=== PATIENT | male | born 1945 | race Caucasian/White ===

== ENCOUNTER 2018-09-12 17:45 | Inpatient (IN) | payer MEDICARE ==
[~2018-09-12] VITALS: Ht 172.7 cm; Wt 69.4 kg
--- NOTE | ~2018-09-12 | DS ---
PATIENT:TIMOTEO PRABHAKAR :47 MEDICAL RECORD: [id number] DISCHARGE SUMMARY ADMISSION DATE: 09/12/18 DISCHARGE DATE: 09/27/18 IDENTIFYING DATA: The patient is 73 years old and he was admitted to the hospital on a voluntary basis because of aggression. The patient lives in a local longterm and apparently has been combative with the staff. He has been refusing medications and personal care. He says the staff there does not like him and that they are attacking him. He has no barbosa and cannot say who was attacking him or when this happened. It is just a generalized paranoid belief. He tells me that the reason they are attacking him is because they want to steal his body organs. He goes on to make a number of delusional noncoherent statements. He denies that he would seek to harm anyone, even though he believes they are trying to attack him to take his body organs and he says there is no single person involved. This is just a generalized conspiracy among everyone at the longterm. He says he does not feel safe there and he is not going to harm himself. He denies hallucinations, although he is clearly delusional. HOSPITAL COURSE: The patient was admitted to the hospital and fully evaluated from both a medical, psychological, and social standpoint. The patient has a known history of schizophrenia and indeed the bizarre paranoid delusions he is displaying are consistent with that condition. He is fairly limited in his insight. He also has clear evidence of cognitive decline that would be consistent with a dementing process. He was treated with both antipsychotic and mood stabilizing and memory enhancing medications and through the course of the hospitalization and had no disruptive or aggressive behaviors and became less paranoid and delusional about the people at the longterm. He was subsequently transitioned back to the longterm but continued to have a number of delusions but not paranoid or persecutory delusions about someone trying to harm him. DISCHARGE DIAGNOSES: AXIS I: Schizophrenia - chronic undifferentiated, senile dementia of the Alzheimer's type. AXIS II: None. AXIS III: Chronic obstructive pulmonary disease, diabetes, peripheral neuropathy. AXIS IV: Moderate stressors. AXIS V: Global Assessment Of Functioning is 40. PLAN: At the time of discharge, the patient was in good behavioral control and had no active thoughts of harming himself or others. He was tolerating his medications well. Followup is to be with his primary care longterm physician. TRANSINT:[id number] Voice Confirmation ID: [id number] DOCUMENT ID: [id number] DISCHARGE SUMMARY REPORT [id number] TIMOTEO PRABHAKAR PETER MD at 0946 CC: [id number] DICTATION DATE: 10/01/18 1022 FUNERAL PLANNING COUNSELOR: 10/01/18 2240 DIS IN 09/27/18 [place] [address] [place] [address]
--- NOTE | ~2018-09-12 | PN ---
PATIENT:TIMOTEO PRABHAKAR MEDICAL RECORD: [id number] LOCATION:GIDEON Jensen112 ADMISSION DATE: 09/12/18 PROGRESS NOTE DATE OF SERVICE: 09/27/2018 SUBJECTIVE: The patient's case was discussed with staff. He has no new complaint. OBJECTIVE: The patient denies intent to harm himself or others. He generally tolerates his medicines well. He makes several delusional statements, but is not representing any acute evidence of direct dangerousness. ASSESSMENT: No change in diagnoses. PLAN: Current medicines have been reviewed. The patient will be transitioned out of the hospital today. He is going to go to the [facility] in [place]. His long-term prognosis is guarded. TRANSINT:[id number] Voice Confirmation ID: [id number] DOCUMENT ID: [id number] SHAKIRA NEWMAN MD at 0954 CC: [id number] DICTATION DATE: 09/27/18 1302 MONOTYPE SETTER: 09/27/18 1306 DIS IN 09/27/18 [place] [address] [place] [address]
--- NOTE | ~2018-09-12 | PN ---
PATIENT:TIMOTEO PRABHAKAR MEDICAL RECORD: [id number] LOCATION:GIDEON Jensen112 ADMISSION DATE: 09/12/18 PROGRESS NOTE DATE OF SERVICE: 09/14/2018 SUBJECTIVE: The patient's case was discussed with staff. He has no new complaint. OBJECTIVE: The patient is in good behavioral control with limited insight about his condition. He has been pleasant, but quite bizarre. He ate very well yesterday and is taking his medications as prescribed. He clearly has a history of schizophrenia and I very much understand and agree with that diagnosis. I am going to discontinue his Risperdal and we will change him to some oral Haldol. I am going to do this based on his preference for that particular medication and him telling me that it worked well for him in the past. I also know that there is a history of noncompliance and so I am going to consider perhaps treating him with a long-acting Haldol injection before he leaves. TRANSINT:[id number] Voice Confirmation ID: [id number] DOCUMENT ID: [id number] SHAKIRA NEWMAN MD at 0926 CC: [id number] DICTATION DATE: 09/14/18 1035 ADDRESSER: 09/14/18 1146 ADM IN [place] [address] [id number] [place] [address]
--- NOTE | ~2018-09-12 | PN ---
PATIENT:TIMOTEO PRABHAKAR MEDICAL RECORD: [id number] LOCATION:IVYZeyad Jensen112 ADMISSION DATE: 09/12/18 PROGRESS NOTE DATE OF SERVICE: 09/22/2018 SUBJECTIVE: The patient's case was discussed with staff. He has no new complaint. OBJECTIVE: The patient is in good behavioral control with limited insight about his condition. He has not been aggressive today. ASSESSMENT: No change in diagnoses. PLAN: Current medicines have been reviewed. I think the 5 mg of Haldol at bedtime is going to be sufficient, although it has not had an opportunity to become fully effective. His long-term prognosis is guarded. TRANSINT:[id number] Voice Confirmation ID: [id number] DOCUMENT ID: [id number] SHAKIRA NEWMAN MD at 1241 CC: [id number] DICTATION DATE: 09/22/18 1427 LENS GRINDER: 09/22/18 1454 ADM IN [place] [id number] [place] [id number]
--- NOTE | ~2018-09-12 | PN ---
PATIENT:TIMOTEO PRABHAKAR MEDICAL RECORD: [id number] LOCATION:GIDEON Miranda ADMISSION DATE: 09/12/18 PROGRESS NOTE DATE OF SERVICE: 09/17/2018 SUBJECTIVE: The patient's case was discussed with staff. He has no new complaint. OBJECTIVE: The patient denies intent to harm himself or others. He has loose associations and is concrete to abstraction. He has limited short-term memory. ASSESSMENT: No change in diagnoses. PLAN: No psychotic symptoms are observed. The patient is tolerating the increased dose of Haldol well. His long-term prognosis is guarded. TRANSINT:[id number] Voice Confirmation ID: [id number] DOCUMENT ID: [id number] SHAKIRA NEWMAN MD at 1223 CC: [id number] DICTATION DATE: 09/17/18 1443 PERFORATING MACHINE OPERATOR: 09/17/18 1540 ADM IN [facility] [address] [place] [address]
--- NOTE | ~2018-09-12 | PN ---
PATIENT:TIMOTEO PRABHAKAR MEDICAL RECORD: [id number] LOCATION:GIDEON Jensen112 ADMISSION DATE: 09/12/18 PROGRESS NOTE DATE OF SERVICE: 09/25/2018 SUBJECTIVE: The patient's case was discussed with staff. He has no new complaint. OBJECTIVE: The patient denies intent to harm himself or others. He does tolerate his medicines well. Eye contact is fair. ASSESSMENT: No change in diagnoses. PLAN: Brief supportive and educational interventions were made. The patient wants to go live with his [place] to [facility], but I do not see how that is possible given the fact that we cannot contact the brother and he is in the custody of adult protective services and they have ordered no contact with the family. Apparently, there were issues related to supervision or exploitation in the past that has precipitated this. I see no alternative, but for him to return to [facility]. TRANSINT:[id number] Voice Confirmation ID: [id number] DOCUMENT ID: [id number] SHAKIRA NEWMAN MD at 1641 CC: [id number] DICTATION DATE: 09/25/18 0941 POTTERY DECORATOR: 09/25/18 [address] [facility] [address] [place] [address]
--- NOTE | ~2018-09-12 | PN ---
PATIENT:TIMOTEO PRABHAKAR MEDICAL RECORD: [id number] LOCATION:MargotSORAYAZeyad Jensen112 ADMISSION DATE: 09/12/18 PROGRESS NOTE DATE OF SERVICE: 09/20/2018 SUBJECTIVE: The patient's case was discussed with staff. He has no new complaint. OBJECTIVE: The patient is sleeping and eating reasonably well. His Haldol has been increased to 5 mg a day and with that increase I think there is any improvement in his underlying level of psychotic symptoms. He has very limited insight about his situation. ASSESSMENT: No change in diagnoses. PLAN: Supportive and educational interventions were made. Long-term prognosis is guarded. TRANSINT:[id number] Voice Confirmation ID: [id number] DOCUMENT ID: [id number] SHAKIRA NEWMAN MD at 1212 CC: [id number] DICTATION DATE: 09/20/18 1040 FUR SCRAPER: 09/20/18 1101 ADM IN [facility] [address] [place] [address]
--- NOTE | ~2018-09-12 | PN ---
PATIENT:TIMOTEO PRABHAKAR MEDICAL RECORD: [id number] LOCATION:MargotPitaJM Jensen112 ADMISSION DATE: 09/12/18 PROGRESS NOTE DATE OF SERVICE: 09/21/2018 SUBJECTIVE: The patient's case was discussed with staff. He has no new complaint. OBJECTIVE: The patient is tolerating his medicines well. He makes a number of delusional statements, but he has not been aggressive. ASSESSMENT: No change in diagnoses. PLAN: Current medicines and therapies have been reviewed and will be maintained. His long-term prognosis is guarded. TRANSINT:[id number] Voice Confirmation ID: [id number] DOCUMENT ID: [id number] SHAKIRA NEWMAN MD at 1421 CC: [id number] DICTATION DATE: 09/21/18 1230 CHEMISTRY LABORATORY TECHNICIAN: 09/21/18 1235 ADM IN [facility] [address] [place] [address]
--- NOTE | ~2018-09-12 | PN ---
PATIENT:TIMOTEO PRABHAKAR MEDICAL RECORD: [id number] LOCATION:GIDEON FrostPita112 ADMISSION DATE: 09/12/18 PROGRESS NOTE DATE OF SERVICE: 09/23/2018 SUBJECTIVE: The patient's case was discussed with staff. He has no new complaint. OBJECTIVE: The patient denies intent to harm himself or others. He does tolerate his medicines well. He has a couple of delusional statements that he makes but, on the whole, he is not showing evidence of gross disorganization. ASSESSMENT: No change in diagnoses. PLAN: Current medicines have been reviewed and will be maintained. Long-term prognosis is guarded. TRANSINT:[id number] Voice Confirmation ID: [id number] DOCUMENT ID: [id number] SHAKIRA NEWMAN MD at 0930 CC: [id number] DICTATION DATE: 09/23/18 1244 SHADING PAINTER: 09/23/18 1428 ADM IN [facility] [address] [place] [address]
--- NOTE | ~2018-09-12 | PN ---
PATIENT:TIMOTEO PRABHAKAR MEDICAL RECORD: [id number] LOCATION:GIDEON Camila112 ADMISSION DATE: 09/12/18 PROGRESS NOTE DATE OF SERVICE: 09/15/2018 SUBJECTIVE: The patient's case was discussed with staff. He has no new complaint. OBJECTIVE: The patient denies intent to harm himself or others. He generally tolerates his medicines well. ASSESSMENT: No change in diagnoses. PLAN: Current medicines have been reviewed. The patient has not been significantly agitated, although he does require an extensive amount of redirection. He has tolerated his initial doses of Haldol well, but I will monitor him to make sure there is no excessive sedation. TRANSINT:[id number] Voice Confirmation ID: [id number] DOCUMENT ID: [id number] SHAKIRA NEWMAN MD at 1054 CC: [id number] DICTATION DATE: 09/15/18 0937 TEAROOM HOSTESS: 09/15/18 1102 ADM IN [place] [id number] [place] [id number]
--- NOTE | ~2018-09-12 | PN ---
PATIENT:TIMOTEO PRABHAKAR MEDICAL RECORD: [id number] LOCATION:GIDEON Jensen112 ADMISSION DATE: 09/12/18 PROGRESS NOTE DATE OF SERVICE: 09/18/2018 SUBJECTIVE: The patient's case was discussed with staff. He has no new complaint. OBJECTIVE: The patient is in good behavioral control with limited insight about his condition. He tolerates his medicines well. ASSESSMENT: No change in diagnoses. PLAN: Supportive and educational interventions were made. The patient is in good behavioral control. TRANSINT:[id number] Voice Confirmation ID: [id number] DOCUMENT ID: [id number] SHAKIRA NEWMAN MD at 0922 CC: [id number] DICTATION DATE: 09/18/18 1238 CUTLERY GRINDER: 09/18/18 1244 ADM IN [place] [id number] [place] [address]
--- NOTE | ~2018-09-12 | PN ---
PATIENT:TIMOTEO PRABHAKAR MEDICAL RECORD: [id number] LOCATION:GIDEON Jensen112 ADMISSION DATE: 09/12/18 PROGRESS NOTE DATE OF SERVICE: 09/19/2018 SUBJECTIVE: The patient's case was discussed with staff. He has no new complaint. OBJECTIVE: The patient is in good behavioral control. He did sleep better last night with the addition of the trazodone. He has made a number of delusional statements, but has not been behaviorally aggressive or disruptive. ASSESSMENT: No change in diagnoses. PLAN: Current medicines have been reviewed and will be maintained. His long-term prognosis is guarded. Brief supportive and educational interventions were made. TRANSINT:[id number] Voice Confirmation ID: [id number] DOCUMENT ID: [id number] SHAKIRA NEWMAN MD at 1026 CC: [id number] DICTATION DATE: 09/19/18 1117 VASCULAR MANAGER: 09/19/18 1237 ADM IN [place] [address] [place] [address]
--- NOTE | ~2018-09-12 | PN ---
PATIENT:TIMOTEO PRABHAKAR MEDICAL RECORD: [id number] LOCATION:GIDEON Jensen112 ADMISSION DATE: 09/12/18 PROGRESS NOTE DATE OF SERVICE: 09/26/2018 SUBJECTIVE: The patient's case was discussed with staff. He has no new complaint. OBJECTIVE: The patient is in good behavioral control with limited insight about his condition. He does tolerate his medicines well. He is still delusional, but not representing a direct risk. He does require supervision. He is under [facility] custody and is going to be returned to the [facility] tomorrow. If he does have a brother, we have no contact information and the patient was living on the street, not with his brother prior to going to the [facility]. APS may want to look into another housing arrangement later, but at this point, he must go to [facility] and I have informed him of that. TRANSINT:[id number] Voice Confirmation ID: [id number] DOCUMENT ID: [id number] SHAKIRA NEWMAN MD at 1254 CC: [id number] DICTATION DATE: 09/26/18 1748 WIRE FRAME LAMPSHADE MAKER: 09/26/18 1859 ADM IN [facility] [address] [place] [address]
--- NOTE | ~2018-09-12 | PSY ---
PATIENT NAME:TIMOTEO PRABHAKAR MEDICAL RECORD: [id number] : 47 LOCATION:GIDEON Miller ADMISSION DATE: 09/12/18 ACCOUNT: [id number] PSYCHIATRIC EVALUATION DATE OF EVALUATION: 09/13/18 IDENTIFYING DATA: The patient is 73 years old and he is admitted to the hospital on a voluntary basis. CHIEF COMPLAINT: Aggression. HISTORY OF PRESENT ILLNESS: The patient lives in a local shelter. He apparently has been combative with the staff, refusing medications and refusing personal care. He says that the staff there does not like him and that they are attacking him. He has no barbosa and he cannot say who or when this happened, but just a general paranoid belief that they are mistreating him. When asked about why they are doing this, he says that they are wanting to steal his organs. He goes on and makes a number of other delusional noncoherent statements. He denies that he would seek to harm anyone else, saying that there is no single person that is involved in this, it is conspiracy involving everyone at the shelter. He says he does feel safe here. He denies that he would seek to harm himself. He denies that he is having auditory or visual hallucinations. PAST MEDICAL HISTORY: Significant for diabetes and an associated neuropathy. PAST PSYCHIATRIC HISTORY: Significant for a longstanding diagnosis of schizophrenia and a recent diagnosis of Alzheimer's dementia. FAMILY HISTORY: Significant for hypertension, but psychiatric issues are denied. ALLERGIES: No known drug allergies. CURRENT MEDICATIONS: Include Atrovent, calcium, Flonase, Glucophage, Risperdal, Zocor, and trazodone. SOCIAL HISTORY: The patient says he has never used drugs or alcohol. He says he was and his . He also tells me he has 2 children. He lives in a local shelter. MENTAL STATUS EXAMINATION: The patient is awake, alert and oriented to person and place, but not to time or situation. His mood is anxious. His affect is constricted. Thought processes are circumstantial. Memory, concentration, and abstraction abilities are moderately impaired and he denies any active intent to harm himself or others as well as overt psychotic symptoms. ASSETS: Supportive family members. LIABILITIES: Limited insight. DIAGNOSTIC IMPRESSION: AXIS I: Schizophrenia, chronic, undifferentiated. Senile dementia of the Alzheimer's type. AXIS II: None. AXIS III: Chronic obstructive pulmonary disease, diabetes, neuropathy. AXIS IV: Moderate stressors. AXIS V: Global assessment of functioning is 35. PLAN: At this time, the patient is admitted to the hospital for a comprehensive medical, psychological, and social evaluation. He will be treated with both mood stabilizing and memory enhancing medications. His long-term prognosis is guarded. TRANSINT:[id number] Voice Confirmation ID: [id number] DOCUMENT ID: [id number] SHAKIRA NEWMAN MD at 1024 CC: [id number] DICTATION DATE: 09/13/18 1014 DSP ENGINEER: 09/13/18 1125 [facility] IN [place] [id number] [place] [address]
--- NOTE | ~2018-09-12 | PN ---
PATIENT:TIMOTEO PRABHAKAR MEDICAL RECORD: [id number] LOCATION:GIDEON Camila112 ADMISSION DATE: 09/12/18 PROGRESS NOTE DATE OF SERVICE: 09/16/2018 SUBJECTIVE: The patient's case was discussed with staff. He has no new complaint. OBJECTIVE: The patient has been seen clearly attending to voices not present. When asked about this, he is evasive and basically is denying it. He has pretty limited insight about his situation. He says he is not having any thoughts of harming himself. ASSESSMENT: No change in diagnoses. PLAN: Current medications have been reviewed and will be maintained. I am going to increase and consolidate the dose of Haldol to 5 mg at bedtime. TRANSINT:[id number] Voice Confirmation ID: [id number] DOCUMENT ID: [id number] SHAKIRA NEWMAN MD at 1417 CC: [id number] DICTATION DATE: 09/16/18 1106 LIME VAT TENDER: 09/16/18 1230 ADM IN [place] [address] [place] [address]
--- NOTE | ~2018-09-12 | PN ---
PATIENT:TIMOTEO PRABHAKAR MEDICAL RECORD: [id number] LOCATION:GIDEON Jensen112 ADMISSION DATE: 09/12/18 PROGRESS NOTE DATE OF SERVICE: 09/24/2018 SUBJECTIVE: The patient's case was discussed with staff. He has no new complaint. OBJECTIVE: The patient is in good behavioral control with limited insight about his condition. He generally tolerates his medicines well. ASSESSMENT: No change in diagnoses. PLAN: Supportive and educational interventions were made. Long-term prognosis is guarded. The patient will be discharged from the hospital soon. He continues to be delusional, but is not currently representing a direct risk to himself or others. TRANSINT:[id number] Voice Confirmation ID: [id number] DOCUMENT ID: [id number] SHAKIRA NEWMAN MD at 0924 CC: [id number] DICTATION DATE: 09/24/18 1022 TOBACCO PRIZER: 09/24/18 1117 ADM IN [place] [address] [place] [address]
[2018-09-12 19:00] VITALS: BP 147/79
[2018-09-12 19:23] LABS: APPEARANCE CLEAR (CLEAR); COLOR YELLOW (YELLOW)
[2018-09-12 19:24] LABS: BILIRUBIN NEGATIVE (NEGATIVE); GLUCOSE 50 mg/dL (NEGATIVE); KETONE NEGATIVE (NEGATIVE); NITRITE NEGATIVE (NEGATIVE); PROTEIN 1+ mg/dL (NEGATIVE); SPECIFIC GRAVITY 1.015 (1.005-1.020); UROBILINOGEN NORMAL (NORMAL)
[2018-09-12 19:28] LABS: BACTERIA FEW /hpf (NONE SEEN); EPITHELIAL CELLS 0-5 /hpf (0-5); RED CELLS - URINE 0-5 /hpf (0-5); WHITE CELLS - URINE 0-5 /hpf (0-5)
[2018-09-12] MEDS ORDERED: ATROVENT HFA12.9 GM INH (20:39)
[2018-09-12] MEDS ORDERED: CALCIUM 600 +1 EAC3 PO (20:44)
[2018-09-12] MEDS ORDERED: FLUTICASONE PRO16 GM NASAL (20:45)
[2018-09-12] MEDS ORDERED: GLUCOPHAGE500 MG PO (20:46)
[2018-09-12] MEDS ORDERED: ZOCOR40 MG PO (20:47)
[2018-09-12] MEDS ORDERED: RISPERDAL3 MG PO (20:47)
[2018-09-12] MEDS ORDERED: TRAZODONE HCL100 MG PO (20:48)
[2018-09-13 00:51] VITALS: BP 147/79; BMI 23.3
[2018-09-13 06:22] LABS: BASOPHILS 0.4 % (0-2); EOSINOPHILS 2.4 % (0-7); HEMATOCRIT 39.3 % (42.0-54.0); HEMOGLOBIN 13.4 g/dL (13.5-17.5); IMMATURE GRANULOCYTES 0.7 % (0-5); LYMPHOCYTES 33.5 % (15-50); MCH 30.9 pg (26.0-34.0); MCHC 34.1 g/dL (31.0-37.0); MCV 90.6 fL (80.0-100.0); MONOCYTES 8.8 % (2-11); NEUTROPHILS 54.2 % (40-80); PLATELET COUNT 183 10x3/uL (130-400); RBC 4.34 10x6/uL (4.20-6.10); RDW 13.6 % (11.5-14.5); WBC 7.6 10x3/uL (4.8-10.8)
[2018-09-13 06:48] LABS: ALBUMIN 3.5 g/dL (3.4-5.0); ALKALINE PHOSPHATASE 100 U/L (46-116); ALT (SGPT) 47 U/L (10-68); BILIRUBIN - TOTAL 0.42 mg/dL (0.2-1.3); CALC OSMOLALITY 276 mosm/kg (275-300); CALCIUM 8.9 mg/dL (8.5-10.1); CARBON DIOXIDE 26.4 mmol/L (21.0-32.0); CHLORIDE - SERUM 102 mmol/L (98-107); CHOL - HDL RATIO 2.6 ratio (2.3-4.9); CHOLESTEROL, TOTAL 214 mg/dL (0-200); CREATININE - SERUM 0.9 mg/dL (0.6-1.3); GLUCOSE 99 mg/dL (74-106); HDL CHOLESTEROL 83 mg/dL (32-96); LDL CHOLESTEROL 120 mg/dL (0-100); LDL-HDL RATIO 1.4 ratio (1.5-3.5); SODIUM 138 mmol/L (136-145); THYROID STIMULATING HORMONE 1.85 uIU/mL (0.36-3.74); TRIGLYCERIDE 58 mg/dL (30-200); UREA NITROGEN 14 mg/dL (7-18); eGFR NON AFRICAN AMERICAN 88 mL/min (90-120)
[2018-09-13 19:25] VITALS: BP 148/92
[2018-09-13 20:06] VITALS: BP 128/67
[2018-09-14 09:18] LABS: FOLATE (FOLIC ACID) - SERUM 12.7 ng/mL (>3.0)
[2018-09-14 10:05] VITALS: BP 105/64
[2018-09-14 20:10] VITALS: BP 111/60
[2018-09-15 09:15] VITALS: BP 94/54
[2018-09-15 19:32] VITALS: BP 100/57
[2018-09-16 08:00] VITALS: BP 130/77
[2018-09-16 19:54] VITALS: BP 113/58
[2018-09-17 07:00] VITALS: BP 113/89
[2018-09-17 13:30] VITALS: Ht 172.7 cm; Wt 69.4 kg
[2018-09-17 20:21] VITALS: BP 118/71
[2018-09-18 07:00] VITALS: BP 115/60
[2018-09-18 20:15] VITALS: BP 105/60
[2018-09-19 09:47] VITALS: BP 120/65
[2018-09-19 20:34] VITALS: BP 124/63
[2018-09-20 11:22] VITALS: BP 109/89
[2018-09-20 11:34] VITALS: BP 109/89
[2018-09-20 20:32] VITALS: BP 118/61
[2018-09-21 08:59] VITALS: BP 114/64
[2018-09-21 20:02] VITALS: BP 126/54
[2018-09-22 10:47] VITALS: BP 132/72
[2018-09-22 19:32] VITALS: BP 127/66
[2018-09-23 08:05] VITALS: BP 102/87
[2018-09-23 20:00] VITALS: BP 118/61
[2018-09-24 10:03] VITALS: BP 111/65
[2018-09-24 20:39] VITALS: BP 136/73
[2018-09-25 09:26] VITALS: BP 10/66
[2018-09-25 19:31] VITALS: BP 104/60
[2018-09-26 09:18] VITALS: BP 141/74
[2018-09-26] MEDS ORDERED: HALDOL5 MG PO (16:58)
[2018-09-26] MEDS ORDERED: FEXOFENADINE H180 MG PO (16:58)
[2018-09-26] MEDS ORDERED: VITAMIN D5000 UNIT PO (16:59)
[2018-09-26] MEDS ORDERED: VITAMIN B-121000 MCG PO (16:59)
[2018-09-26] MEDS ORDERED: DESERYL50 M2 PO (16:59)
[2018-09-26 19:49] VITALS: BP 102/49
[2018-09-27 10:12] VITALS: BP 104/60
== END 2018-09-27 11:00 | DRG 57 ==
LOC: D.PSYCH 17:45
PROVIDERS: Psychiatry & Neurology Psychiatry
DX: G30.1 Alzheimer's disease with late onset (principal); F20.5 Residual schizophrenia; F02.81 Dementia in other diseases classified elsewhere, unspecified severity, with behavioral disturbance; F20.0 Paranoid schizophrenia; E11.40 Type 2 diabetes mellitus with diabetic neuropathy, unspecified; J44.9 Chronic obstructive pulmonary disease, unspecified; E11.51 Type 2 diabetes mellitus with diabetic peripheral angiopathy without gangrene; E11.621 Type 2 diabetes mellitus with foot ulcer; L97.509 Non-pressure chronic ulcer of other part of unspecified foot with unspecified severity; K21.9 Gastro-esophageal reflux disease without esophagitis; I10 Essential (primary) hypertension; E78.5 Hyperlipidemia, unspecified; J30.9 Allergic rhinitis, unspecified; E53.8 Deficiency of other specified B group vitamins; E55.9 Vitamin D deficiency, unspecified; Z72.0 Tobacco use; Z91.14 Patient's other noncompliance with medication regimen

== ENCOUNTER 2018-10-07 10:32 | Inpatient (IN) | payer MEDICARE ==
[~2018-10-07] VITALS: Ht 177.8 cm; Wt 69.9 kg
--- NOTE | ~2018-10-07 | PN ---
PATIENT:TIMOTEO PRABHAKAR MEDICAL RECORD: [id number] LOCATION:GIDEON Jensen112 ADMISSION DATE: 10/07/18 PROGRESS NOTE DATE OF SERVICE: 10/09/2018 SUBJECTIVE: The patient's case was discussed with staff. He has no new complaint. OBJECTIVE: The patient is disorganized with limited insight. He generally is tolerating his medicines well, but remains quite delusional. ASSESSMENT: No change in diagnoses. PLAN: Adult protective services is involved and actually they have to be involved since they are his guardian. They are going to assist us in placing him in a different prison that is more restrictive. He has fairly limited insight about his situation. TRANSINT:[id number] Voice Confirmation ID: [id number] DOCUMENT ID: [id number] SHAKIRA NEWMAN MD at 0827 CC: [id number] DICTATION DATE: 10/09/18 1445 FIBREGLASS GUN HAND: 10/09/18 1506 ADM IN [place] [address] [place] [address]
--- NOTE | ~2018-10-07 | DS ---
PATIENT:TIMOTEO PRABHAKAR :47 MEDICAL RECORD: [id number] DISCHARGE SUMMARY ADMISSION DATE: 10/07/18 DISCHARGE DATE: 10/24/18 IDENTIFYING DATA: The patient is 73 years old and he was admitted to the hospital on an involuntary basis from a local assisted. CHIEF COMPLAINT: Aggression. HISTORY OF PRESENT ILLNESS: The patient is known to me from previous clinical contact. He is a chronically mentally ill man who has both Alzheimer's disease and schizophrenia. Apparently through much of his adult life, he drank too much, wandered the streets of [place], and was well known as the local for lack of a better term crazy man, who drank and wandered the streets there. He since has been taken into custody by the [facility] and they are his guardian, he lives in a assisted, but he continues to be delusional and at times angry and unmanageable. He has this delusion that he is allowed to live in [facility] or actually that they have a trailer behind the [facility] where he is supposed to live. It is of not helpful to try and reason him through this. He is absolutely convinced that he is supposed to live in a trailer behind the [facility] in [place]. He had not been taking his medicine at the assisted, had been quite aggressive with the staff as well as threatening and they returned him to us after only a short stay there for reevaluation and treatment. Interestingly, they also indicated that they would not accept him back even if he were nicely stabilized. HOSPITAL COURSE: The patient was admitted to the hospital and evaluated from both a medical, psychological, and social standpoint. He was delusional and was treated with both long-acting and short-acting antipsychotic medications. He showed improvement in his mood and had a reduction in his aggressive behaviors, but continued to be somewhat delusional, even though the intensity of the delusions was much less. The [facility] [employer] who is actually his guardian found him and placed him in another assisted and he was transitioned there after being medically stabilized. DISCHARGE DIAGNOSES: AXIS I: 1. Schizophrenia, chronic undifferentiated. 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 AXIS II: None. AXIS III: Chronic obstructive pulmonary disease, diabetes, peripheral neuropathy. AXIS IV: Moderate stressors. AXIS V: Global assessment of functioning is 40. PLAN: At the time of discharge, the patient was not acutely dangerous to himself or others. He was tolerating his medications well. He is going to have [facility] well as his primary care assisted physician. He will be maintained on the long-acting Haldol injection. If he is medication compliant, he is reasonably stable and can be managed in the assisted. The ongoing problem with him is that he becomes medication noncompliant and then delusional and disruptive. His prognosis is good or reasonably good if he will take his medicine and it is poor or quite poor if he does note. DISCHARGE SUMMARY REPORT [id number] TIMOTEO PRABHAKAR TRANSINT:[id number] Voice Confirmation ID: [id number] DOCUMENT ID: [id number] SHAKIRA NEWMAN MD at 1204 CC: [id number] DICTATION DATE: 10/26/181735 EYE SPECIALIST: 10/27/18 0732 DIS IN 10/24/18 [place] [place] [address]
--- NOTE | ~2018-10-07 | PN ---
PATIENT:TIMOTEO PRABHAKAR MEDICAL RECORD: [id number] LOCATION:GIDEON Jensen112 ADMISSION DATE: 10/07/18 PROGRESS NOTE DATE OF SERVICE: 10/13/2018 SUBJECTIVE: The patient's case was discussed with staff. He has no new complaint. OBJECTIVE: The patient is delusional and continues to make numerous delusional statements. He did receive his Haldol decanoate. I am going to maintain him on oral Haldol for the time being. ASSESSMENT: No change in diagnoses. PLAN: Current medicines have been reviewed and will be maintained. Supportive and educational interventions were made. TRANSINT:[id number] Voice Confirmation ID: [id number] DOCUMENT ID: [id number] SHAKIRA NEWMAN MD at 1556 CC: [id number] DICTATION DATE: 10/13/18 1304 PERSONAL COMPUTER NETWORK ANALYST: 10/13/18 1313 ADM IN [facility] [address] [place] [address]
--- NOTE | ~2018-10-07 | PN ---
PATIENT:JEFF BONILLA MEDICAL RECORD: [id number] LOCATION:MargotPitaJM Jensen112 ADMISSION DATE: 10/07/18 PROGRESS NOTE DATE OF SERVICE: 10/08/2018 SUBJECTIVE: The patient's case was discussed with staff. He has no new complaint. OBJECTIVE: The patient is very delusional today. He tells me that there was a mix up in his blood and that he really is not Jeff Bonilla, he is Ciaran Bonilla. He also says that he wants to leave the hospital and he is going to walk from here to [place] to go to [facility] where he lives. ASSESSMENT: No change in diagnoses. PLAN: The patient has been compliant with his medicines. I strongly suspect that he has not been getting his medicines at the jail, so I am going to leave him on this current regimen that he was doing so well on when he left us. TRANSINT:[id number] Voice Confirmation ID: [id number] DOCUMENT ID: [id number] SHAKIRA NEWMAN MD at 1203 CC: [id number] DICTATION DATE: 10/08/18 1559 BOOKKEEPER: 10/08/18 1750 ADM IN [place] [id number] [place] [address]
--- NOTE | ~2018-10-07 | PN ---
PATIENT:TIMOTEO PRABHAKAR MEDICAL RECORD: [id number] LOCATION:GIDEON Camila112 ADMISSION DATE: 10/07/18 PROGRESS NOTE DATE OF SERVICE: 10/23/2018 SUBJECTIVE: The patient's case was discussed with staff. He has no new complaint. OBJECTIVE: The patient denies intent to harm himself or others. He is delusional. ASSESSMENT: No change in diagnoses. PLAN: State has arranged for him to be transferred to the [facility] in [place]. He will be monitored for clinical changes. His long-term prognosis is guarded. I plan to discharge him tomorrow assuming this level of improvement continues. TRANSINT:[id number] Voice Confirmation ID: [id number] DOCUMENT ID: [id number] SHAKIRA NEWMAN MD at 1058 CC: [id number] DICTATION DATE: 10/23/18 1431 COST SPECIALIST: 10/23/18 1718 ADM IN [place] [place] [address]
--- NOTE | ~2018-10-07 | PN ---
PATIENT:TIMOTEO PRABHAKAR MEDICAL RECORD: [id number] LOCATION:GIDEON JensenRadha ADMISSION DATE: 10/07/18 PROGRESS NOTE DATE OF SERVICE: 10/12/2018 SUBJECTIVE: The patient's case was discussed with staff. He has no new complaint. OBJECTIVE: The patient is in good behavioral control with limited insight about his condition. He generally tolerates his medicines well. ASSESSMENT: No change in diagnoses. PLAN: Brief supportive and educational interventions were made. Long-term prognosis is guarded. TRANSINT:[id number] Voice Confirmation ID: [id number] DOCUMENT ID: [id number] SHAKIRA NEWMAN MD at 1249 CC: [id number] DICTATION DATE: 10/12/18 1642 ANALYTICS LEAD: 10/12/18 1737 ADM IN [place] [place] [address]
--- NOTE | ~2018-10-07 | PN ---
PATIENT:TIMOTEO PRABHAKAR MEDICAL RECORD: [id number] LOCATION:IVYZeyad JensenRadha ADMISSION DATE: 10/07/18 PROGRESS NOTE DATE OF SERVICE: 10/24/2018 SUBJECTIVE: The patient's case was discussed with staff. He has no new complaint. OBJECTIVE: The patient is in good behavioral control with limited insight about his condition. He tolerates his medicines well. ASSESSMENT: No change in diagnoses. PLAN: The patient will be transitioned out of the hospital today. He is going to go to the [facility] in [place]. His long-term prognosis is guarded. TRANSINT:[id number] Voice Confirmation ID: [id number] DOCUMENT ID: [id number] SHAKIRA NEWMAN MD at 0908 CC: [id number] DICTATION DATE: 10/24/181125 FOLDING MACHINE FEEDER: 10/24/18 1226 DIS IN 10/24/18 [facility] [address] [place] [address]
--- NOTE | ~2018-10-07 | PN ---
PATIENT:TIMOTEO PRABHAKAR MEDICAL RECORD: [id number] LOCATION:GIDEON JensenRadha ADMISSION DATE: 10/07/18 PROGRESS NOTE DATE OF SERVICE: 10/19/2018 SUBJECTIVE: The patient's case was discussed with staff. He has no new complaint. OBJECTIVE: The patient denies intent to harm himself or others. He generally tolerates his medicines well. ASSESSMENT: No change in diagnoses. PLAN: The patient is delusional, but in good behavioral control. I anticipate he can be transitioned out of the hospital soon. TRANSINT:[id number] Voice Confirmation ID: [id number] DOCUMENT ID: [id number] SHAKIRA NEWMAN MD at 1309 CC: [id number] DICTATION DATE: 10/19/18 1335 VALVE MACHINE OPERATOR: 10/19/18 1546 ADM IN [facility] [address] [place] [address]
--- NOTE | ~2018-10-07 | PN ---
PATIENT:TIMOTEO PRABHAKAR MEDICAL RECORD: [id number] LOCATION:GIDEON JensenRadha ADMISSION DATE: 10/07/18 PROGRESS NOTE DATE OF SERVICE: 10/20/2018 SUBJECTIVE: The patient's case was discussed with staff. He has no new complaint. OBJECTIVE: The patient denies intent to harm himself or others. He generally tolerates his medicines well. ASSESSMENT: No change in diagnoses. PLAN: Brief supportive and educational interventions were made. Long-term prognosis is guarded. TRANSINT:[id number] Voice Confirmation ID: [id number] DOCUMENT ID: [id number] SHAKIRA NEWMAN MD at 1050 CC: [id number] DICTATION DATE: 10/20/18 1323 NEGATIVE NOTCHER: 10/20/18 1422 ADM IN [place] [address] [place] [address]
--- NOTE | ~2018-10-07 | PN ---
PATIENT:TIMOTEO PRABHAKAR MEDICAL RECORD: [id number] LOCATION:GIDEON JensenRadha ADMISSION DATE: 10/07/18 PROGRESS NOTE DATE OF SERVICE: 10/22/2018 SUBJECTIVE: The patient's case was discussed with staff. He has no new complaint. OBJECTIVE: The patient is in good behavioral control with limited insight about his condition. He does tolerate his medicines well. ASSESSMENT: No change in diagnoses. PLAN: Current medicines and therapies have been reviewed, both will be maintained. Long-term prognosis is guarded. I anticipate he can be transitioned out of the hospital once jail placement is arranged. TRANSINT:[id number] Voice Confirmation ID: [id number] DOCUMENT ID: [id number] SHAKIRA NEWMAN MD at 0932 CC: [id number] DICTATION DATE: 10/22/18 162 STUDENT AFFAIRS VICE PRESIDENT: 10/22/18 1719 ADM IN [facility] [address] [place] [address]
--- NOTE | ~2018-10-07 | PN ---
PATIENT:TIMOTEO PRABHAKAR MEDICAL RECORD: [id number] LOCATION:IVYZeyad JensenRadha ADMISSION DATE: 10/07/18 PROGRESS NOTE DATE OF SERVICE: 10/14/2018 SUBJECTIVE: The patient's case was discussed with staff. He has no new complaint. OBJECTIVE: The patient denies intent to harm himself or others. He does tolerate his medicines well. He is delusional and somewhat paranoid, but has been less agitated since he received his Haldol Decanoate shot. ASSESSMENT: No change in diagnoses. PLAN: Supportive and educational interventions were made. Long-term prognosis is guarded. TRANSINT:[id number] Voice Confirmation ID: [id number] DOCUMENT ID: [id number] SHAKIRA NEWMAN MD at 1556 CC: [id number] DICTATION DATE: 10/14/18 1312 RUG LAYER: 10/14/18 1527 ADM IN [place] [address] [place] [address]
--- NOTE | ~2018-10-07 | PN ---
PATIENT:TIMOTEO PRABHAKAR MEDICAL RECORD: [id number] LOCATION:GIDEON Camila112 ADMISSION DATE: 10/07/18 PROGRESS NOTE DATE OF SERVICE: 10/15/2018 SUBJECTIVE: The patient's case was discussed with staff. He has no new complaint. OBJECTIVE: The patient is disorganized. He is still delusional, but he is not angry or agitated, especially when I tell him that he is not going to be able to go and live alone. That is a difficult thing to tell him, it is not pleasant at all and he very much wants to live alone even though he cannot. I think he is improved because he no longer becomes angry and pounds his hand on the table and tells me that he is going to go home and live alone, but clearly he is coming to some level of acceptance of his situation as unfortunate as it is. ASSESSMENT: No change in diagnoses. PLAN: I am going to continue the oral Haldol along with the decanoate for now. Adult protective services is helping us with the transfer to a behavioral health shelter. Given the things that need to happen before that can occur, I am not optimistic it is going to happen for the . TRANSINT:[id number] Voice Confirmation ID: [id number] DOCUMENT ID: [id number] SHAKIRA NEWMAN MD at 1042 CC: [id number] DICTATION DATE: 10/15/18 1634 PIGEON FANCIER: 10/15/18 1752 ADM IN [place] [place] [address]
--- NOTE | ~2018-10-07 | PN ---
PATIENT:TIMOTEO PRABHAKAR MEDICAL RECORD: [id number] LOCATION:MargotPitaJM JensenRadha ADMISSION DATE: 10/07/18 PROGRESS NOTE DATE OF SERVICE: 10/11/2018 IDENTIFYING DATA: The patient's case was discussed with staff. He has no new complaint. OBJECTIVE: The patient is making a number of very delusional statements. He denies that he would seek to harm himself or others. He is not consistently taking his medications. ASSESSMENT: No change in diagnoses. PLAN: The patient will be given Haldol Decanoate, at a dose of 50 mg every month. His long-term prognosis is guarded. TRANSINT:[id number] Voice Confirmation ID: [id number] DOCUMENT ID: [id number] SHAKIRA NEWMAN MD at 1627 CC: [id number] DICTATION DATE: 10/11/18 171 OPEN HEARTH FURNACE LABORER: 10/11/18 2151 ADM IN [id number] [place] [address]
--- NOTE | ~2018-10-07 | PSY ---
PATIENT NAME:TIMOTEO PRABHKAAR MEDICAL RECORD: [id number] : 47 LOCATION:GIDEON Miranda6 ADMISSION DATE: 10/07/18 ACCOUNT: [id number] PSYCHIATRIC EVALUATION DATE OF EVALUATION: 10/07/18 IDENTIFYING DATA: The patient is 73 years old and he is admitted to the hospital on a voluntary basis because of psychotic agitation. CHIEF COMPLAINT: "I want to live at [facility]." HISTORY OF PRESENT ILLNESS: The patient is chronically mentally ill. He was admitted here on the 12 of September because of his psychotic symptoms. He was treated with antipsychotic medication and showed improvement. He was discharged from here on the 27 of September, and at that time, was delusional, but certainly not agitated or disruptive in any particular way. The [facility]ci in [place] is returning him to us indicating that he is unmanageable, angry, belligerent, aggressive, and attempting to elope so that he can go to [facility]. He does not need something from [facility], he does not want to go there, he thinks he is supposed to live there. When asked about this, it does not make very much sense, but he says they have a restaurant there and they will feed him and let him sleep in a trailer that is behind the store, and that during the day, he can just walk about [facility] and do whatever he wants. The patient is actually in the custody of adult protective services. He is a known chronically mentally ill person. He is clearly delusional. He also is having obvious auditory and visual hallucinations, but he is denying that he would hurt himself or others, even though he was agitated at the fci. PAST MEDICAL HISTORY: Significant for diabetes and associated neuropathy. PAST PSYCHIATRIC HISTORY: Significant for a long-standing diagnosis of schizophrenia and a more recent diagnosis of dementia. FAMILY HISTORY: Significant for hypertension. ALLERGIES: No known drug allergies. CURRENT MEDICATIONS: Please see the admissions MAR. SOCIAL HISTORY: The patient says he has never used drugs or alcohol. He says he was and his , and he also says he has 2 children. He lives in a local fci. He is in the custody of adult protective services. MENTAL STATUS EXAMINATION: The patient is awake; alert; and oriented to person, place, and somewhat to time and situation. His mood is angry. His affect is constricted. Thought processes are disorganized with delusional content. Memory, concentration, and abstraction abilities could not be tested secondary to poor cooperation, but they are by context and impaired. He is denying psychotic symptoms, but he is openly displaying them. ASSETS: Supportive family members. LIABILITIES: Limited insight. DIAGNOSTIC IMPRESSION: AXIS I: 1. Schizophrenia, chronic, undifferentiated. 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 AXIS II: None. AXIS III: Chronic obstructive pulmonary disease, diabetes, and peripheral neuropathy. AXIS IV: Moderate stressors. AXIS V: Global assessment of functioning is 35. PLAN: At this time, the patient is admitted to the hospital secondary to psychotic agitation associated with some delusions and chronic mental illness. I am not sure how he could have deteriorated so much in such a short period of time, but he clearly has. He will be monitored for clinical changes associated with his medications. For today, I am just going to leave him on his scheduled medicines. He does not look as though he has been shaved since he left here. He also has a disheveled, dirty appearance to his clothing. For today, the current medicines, which are the same medicines he was discharged on, will be maintained. I am strongly suspecting he is going to require placement in a fci that specializes in behaviorally disturbed patients. TRANSINT:[id number] Voice Confirmation ID: [id number] DOCUMENT ID: [id number] SHAKIRA NEWMAN MD at 1502 CC: [id number] DICTATION DATE: 10/07/18 1145 AUTISTIC TEACHER: 10/07/18 1212 ADM IN [id number] [place] [address]
--- NOTE | ~2018-10-07 | PN ---
PATIENT:TIMOTEO PRABHAKAR MEDICAL RECORD: [id number] LOCATION:GIDEON Jensen112 ADMISSION DATE: 10/07/18 PROGRESS NOTE DATE OF SERVICE: 10/17/2018 SUBJECTIVE: The patient's case was discussed with staff. He has no new complaint. OBJECTIVE: The patient makes a number of delusional statements, but is not actively seeking to harm himself. He will be monitored for clinical changes associated with his current medication regimen. His long-term prognosis is guarded. TRANSINT:[id number] Voice Confirmation ID: [id number] DOCUMENT ID: [id number] SHAKIRA NEWMAN MD at 1021 CC: [id number] DICTATION DATE: 10/17/18 1216 PEWTER FABRICATOR: 10/17/18 1238 ADM IN [id number] [place] [address]
--- NOTE | ~2018-10-07 | PN ---
PATIENT:TIMOTEO PRABHAKAR MEDICAL RECORD: [id number] LOCATION:GIDEON Jensen112 ADMISSION DATE: 10/07/18 PROGRESS NOTE DATE OF SERVICE: 10/16/2018 SUBJECTIVE: The patient's case was discussed with staff. He has no new complaint. OBJECTIVE: The patient remains delusional and paranoid, but he is much calmer. He is eating and sleeping well. He has had his Haldol Decanoate shot. I am going to maintain him on oral Haldol for the time being. The plan will be to move him to a more restrictive half-way that provides behavioral management. [facility] is going to consider him, but they are all male unit, which I think would be very appropriate. TRANSINT:[id number] Voice Confirmation ID: [id number] DOCUMENT ID: [id number] SHAKIRA NEWMAN MD at 1133 CC: [id number] DICTATION DATE: 10/16/18 1526 CYLINDRICAL MIXER: 10/16/182009 ADM IN [facility] [address] [place] [address]
--- NOTE | ~2018-10-07 | PN ---
PATIENT:TIMOTEO PRABHAKAR MEDICAL RECORD: [id number] LOCATION:GIDEON Jensen112 ADMISSION DATE: 10/07/18 PROGRESS NOTE DATE OF SERVICE: 10/18/2018 SUBJECTIVE: The patient's case was discussed with staff. He has no new complaint. OBJECTIVE: The patient is in good behavioral control with limited insight about his condition. He does tolerate his medicines well. ASSESSMENT: No change in diagnoses. PLAN: Supportive and educational interventions were made. Long-term prognosis is guarded. The patient is still delusional, but is improving. TRANSINT:[id number] Voice Confirmation ID: [id number] DOCUMENT ID: [id number] SHAKIRA NEWMAN MD at 1327 CC: [id number] DICTATION DATE: 10/18/18 1038 FARM CREW LEADER: 10/18/18 1200 ADM IN [facility] [address] [place] [address]
--- NOTE | ~2018-10-07 | PN ---
PATIENT:TIMOTEO PRABHAKAR MEDICAL RECORD: [id number] LOCATION:GIDEON Jensen112 ADMISSION DATE: 10/07/18 PROGRESS NOTE DATE OF SERVICE: 10/10/2018 SUBJECTIVE: The patient's case was discussed with staff. He has no new complaint. OBJECTIVE: The patient has been refusing his medications. I have spoken to him about this and he says he will take them. His reasons for refusing are delusional and nothing that I can address with the patient education. He and says he will take the medicines now. I am not sure he will follow through with that when I am not here, but I will reconsider this issue tomorrow. TRANSINT:[id number] Voice Confirmation ID: [id number] DOCUMENT ID: [id number] SHAKIRA NEWMAN MD at 1613 CC: [id number] DICTATION DATE: 10/10/18 1218 PECAN GATHERER: 10/10/18 1243 ADM IN [place] [address] [place] [address]
--- NOTE | ~2018-10-07 | PN ---
PATIENT:TIMOTEO PRABHAKAR MEDICAL RECORD: [id number] LOCATION:GIDEON JensenRadha ADMISSION DATE: 10/07/18 PROGRESS NOTE DATE OF SERVICE: 10/21/2018 SUBJECTIVE: The patient's case was discussed with staff. He has no new complaint. OBJECTIVE: The patient is in good behavioral control with poor insight about his condition. He tolerates his medicines well. ASSESSMENT: No change in diagnoses. PLAN: Brief supportive and educational interventions were made. Long-term prognosis is guarded. TRANSINT:[id number] Voice Confirmation ID: [id number] DOCUMENT ID: [id number] SHAKIRA NEWMAN MD at 1551 CC: [id number] DICTATION DATE: 10/21/18 1159 OYSTER PREPARER: 10/21/18 1221 ADM IN [place] [id number] [place] [address]
[~2018-10-07 10:32] MED LIST: ATROVENT HFA12.9 GM INH; CALCIUM 600 +1 EAC3 PO; DESERYL50 M2 PO; FEXOFENADINE H180 MG PO; FLUTICASONE PRO16 GM NASAL; GLUCOPHAGE500 MG PO; HALDOL5 MG PO; RISPERDAL3 MG PO; TRAZODONE HCL100 MG PO; VITAMIN B-121000 MCG PO; VITAMIN D5000 UNIT PO; ZOCOR40 MG PO
[2018-10-07] MEDS ORDERED: ACETAMINOPHEN325 MG PO (11:19)
[2018-10-07] MEDS ORDERED: HALDOL5 MG PO (11:20)
[2018-10-07 20:00] VITALS: BP 159/89
[2018-10-08 00:11] LABS: APPEARANCE CLEAR (CLEAR); BILIRUBIN NEGATIVE (NEGATIVE); COLOR YELLOW (YELLOW); GLUCOSE NEGATIVE (NEGATIVE); KETONE NEGATIVE (NEGATIVE); NITRITE NEGATIVE (NEGATIVE); PROTEIN NEGATIVE (NEGATIVE); SPECIFIC GRAVITY 1.015 (1.005-1.020); UROBILINOGEN NORMAL (NORMAL)
[2018-10-08 00:50] VITALS: BP 159/89
[2018-10-08 07:00] VITALS: BP 128/71
[2018-10-08 12:50] VITALS: BMI 22.1
[2018-10-08 13:49] LABS: BASOPHILS 0.4 % (0-2); EOSINOPHILS 1.7 % (0-7); HEMATOCRIT 34.9 % (42.0-54.0); HEMOGLOBIN 11.6 g/dL (13.5-17.5); IMMATURE GRANULOCYTES 2.5 % (0-5); LYMPHOCYTES 25.8 % (15-50); MCH 30.4 pg (26.0-34.0); MCHC 33.2 g/dL (31.0-37.0); MCV 91.6 fL (80.0-100.0); MEAN PLATELET VOLUME 10.9 fL (7.4-10.4); MONOCYTES 5.7 % (2-11); NEUTROPHILS 63.9 % (40-80); RBC 3.81 10x6/uL (4.20-6.10); RDW 13.8 % (11.5-14.5); WBC 10.2 10x3/uL (4.8-10.8)
[2018-10-08 13:50] LABS: PLATELET COUNT 332 10x3/uL (130-400)
[2018-10-08 14:09] LABS: ALBUMIN 2.8 g/dL (3.4-5.0); ALKALINE PHOSPHATASE 116 U/L (46-116); ALT (SGPT) 74 U/L (10-68); BILIRUBIN - TOTAL 0.23 mg/dL (0.2-1.3); CALC OSMOLALITY 277 mosm/kg (275-300); CARBON DIOXIDE 29.7 mmol/L (21.0-32.0); CHLORIDE - SERUM 101 mmol/L (98-107); CHOL - HDL RATIO 4.4 ratio (2.3-4.9); CHOLESTEROL, TOTAL 145 mg/dL (0-200); CREATININE - SERUM 0.9 mg/dL (0.6-1.3); GLUCOSE 152 mg/dL (74-106); HDL CHOLESTEROL 33 mg/dL (32-96); LDL CHOLESTEROL 93 mg/dL (0-100); LDL-HDL RATIO 2.8 ratio (1.5-3.5); POTASSIUM - SERUM 3.8 mmol/L (3.5-5.1); PROTEIN - SERUM 6.9 g/dL (6.4-8.2); SODIUM 137 mmol/L (136-145); THYROID STIMULATING HORMONE 0.63 uIU/mL (0.36-3.74); TRIGLYCERIDE 99 mg/dL (30-200); UREA NITROGEN 14 mg/dL (7-18); eGFR NON AFRICAN AMERICAN 88 mL/min (90-120)
[2018-10-08 14:57] VITALS: Ht 177.8 cm; Wt 69.9 kg
[2018-10-08 19:38] VITALS: BP 132/75
[2018-10-09 06:15] LABS: RAPID PLASMA REAGIN Non Reactive (Non Reactive)
[2018-10-09 07:25] LABS: FOLATE (FOLIC ACID) - SERUM 10.9 ng/mL (>3.0); VITAMIN D 25 HYDROXY 53.4 ng/mL (30.0-100.0)
[2018-10-09 08:00] VITALS: BP 100/60
[2018-10-09 19:51] VITALS: BP 105/54
[2018-10-10 20:04] VITALS: BP 108/48
[2018-10-11 07:36] VITALS: BP 138/73
[2018-10-11 20:49] VITALS: BP 112/64
[2018-10-12 11:02] VITALS: BP 103/86
[2018-10-12 20:29] VITALS: BP 91/41
[2018-10-13 08:00] VITALS: BP 93/61
[2018-10-13 20:23] VITALS: BP 107/58
[2018-10-14 08:00] VITALS: BP 103/61
[2018-10-14 20:20] VITALS: BP 95/48
[2018-10-15 09:24] VITALS: BP 109/61
[2018-10-15 19:33] VITALS: BP 107/64
[2018-10-16 09:37] VITALS: BP 111/54
[2018-10-16 20:00] VITALS: BP 113/56
[2018-10-17 10:21] VITALS: BP 108/60
[2018-10-17 19:41] VITALS: BP 153/65
[2018-10-18 08:51] VITALS: BP 110/58
[2018-10-18 09:25] VITALS: BP 110/58
[2018-10-18 19:14] VITALS: BP 99/59
[2018-10-19 08:04] VITALS: BP 129/88
[2018-10-19 20:04] VITALS: BP 130/80
[2018-10-20 10:18] VITALS: BP 110/60
[2018-10-20 21:22] VITALS: BP 111/68
[2018-10-21 08:52] VITALS: BP 113/63
[2018-10-21 20:00] VITALS: BP 111/64
[2018-10-22 08:00] VITALS: BP 122/69
[2018-10-22 19:53] VITALS: BP 119/70
[2018-10-23 08:00] VITALS: BP 127/69
[2018-10-23] MEDS ORDERED: HALDOL DECAN50 MG/ML IM (14:37)
[2018-10-23 19:53] VITALS: BP 118/65
[2018-10-24 07:30] VITALS: BP 114/65
== END 2018-10-24 16:00 | DRG 57 ==
LOC: D.PSYCH 10:32
PROVIDERS: Family Medicine; Psychiatry & Neurology Psychiatry
DX: G30.1 Alzheimer's disease with late onset (principal); F20.0 Paranoid schizophrenia; F02.81 Dementia in other diseases classified elsewhere, unspecified severity, with behavioral disturbance; L97.909 Non-pressure chronic ulcer of unspecified part of unspecified lower leg with unspecified severity; F20.5 Residual schizophrenia; J44.9 Chronic obstructive pulmonary disease, unspecified; E11.51 Type 2 diabetes mellitus with diabetic peripheral angiopathy without gangrene; E78.5 Hyperlipidemia, unspecified; I10 Essential (primary) hypertension; K21.9 Gastro-esophageal reflux disease without esophagitis; E11.622 Type 2 diabetes mellitus with other skin ulcer; J30.9 Allergic rhinitis, unspecified; E53.8 Deficiency of other specified B group vitamins; E55.9 Vitamin D deficiency, unspecified; Z72.0 Tobacco use